=== PATIENT | male | born 1965 | race Caucasian/White ===

== ENCOUNTER 2016-11-21 22:47 | Emergency (ER) | payer MEDICAID ==
[~2016-11-21] VITALS: Ht 180.3 cm; Wt 75.0 kg
[2016-11-21 22:50] VITALS: BP 143/94; PULSE 55; RESP 16; TEMP 98.7; O2SAT 98
[2016-11-21] MEDS ORDERED: PRED20 PO (23:12)
[2016-11-21] MEDS ORDERED: NORC5TAB PO (23:12)
[2016-11-21] MEDS ORDERED: predniSONE 20 MG TAB PO ONE (23:15)
[2016-11-21] MEDS ORDERED: oxyCODONE/ACETAMINOPHEN 5 MG/325 MG TAB PO ONE (23:15)
--- NOTE | 2016-11-21 23:18 | PD ---
HPI . Right great toe pain Chief Complaint: Edema Time Seen by Provider: 23:10 Travel History International Travel<30 days: No Contact w/Intl Traveler<30days: No Traveled to known affect area: No History of Present Illness HPI Patient presents with a 3 to four-day history of right great toe pain. Pain is exacerbated by even light touch swell as ambulation and wearing a shoe. Pain is slightly relieved by Advil. He reports no trauma. He has no previous similar history. Pain is initially rated 10/10. [facility] Social History Tobacco Use: No Allergies-Medications (Allergen,Severity, Reaction): Coded Allergies: No Known Allergies (Unverified , 11/21/16) Reported Meds & Prescriptions Reported Meds & Active Scripts Active [place] (Hydrocodone-Acetaminophen) 5-325 mg Tab 1 Tab PO Q4H PRN Prednisone 20 Mg Tab 60 Mg PO DAILY 4 Days Review of Systems Except as stated in HPI: all other systems reviewed are Neg Musculoskeletal: Positive: Arthralgias Physical Exam Narrative GENERAL: Awake and alert and in no acute distress. SKIN: Warm and dry. Redness and warmth overlying the right first MTP joint. HEAD: Atraumatic. Normocephalic. EYES: Pupils equal and round. NECK: Trachea midline. CARDIOVASCULAR: Regular rate and rhythm. RESPIRATORY: No accessory muscle use. MUSCULOSKELETAL: Markedly tender at the right first MTP joint. NEUROLOGICAL: Awake and alert. No obvious cranial nerve deficits. Motor grossly within normal limits. Normal speech. PSYCHIATRIC: Appropriate mood and affect; insight and judgment normal. Data Data Last Documented VS Vital Signs Date Time Temp Pulse Resp B/P Pulse Ox O2 Delivery O2 Flow Rate FiO2 11/21/16 22:50 98.7 55 16 143/94 98 Orders Prednisone (Deltasone) (11/21/16 23:15) Oxycodone-Acetamin 5-325 Mg (Percocet (11/21/16 23:15) MDM Medical Decision Making Medical Screen Exam Complete: Yes Emergency Medical Condition: Yes Differential Diagnosis Differential diagnosis of joint pain includes but is not limited to arthritis, gout, sprain/strain, fracture, dislocation Narrative Course This patient presents with right great toe pain. His physical exam is classic for gout. Diagnosis Primary Impression: Gout Qualified Code: M10.9 - Acute gout involving toe of right foot, unspecified cause Patient Instructions: General Instructions, Gout (ED) Departure Forms: Tests/Procedures Scripts Hydrocodone-Acetaminophen ([place])5-325 mg Tab1 Tab PO Q4H PRN (PAIN) #12 TAB Ref 0 Prov:Rosmery Samaniego MD 11/21/16 Prednisone 20 Mg Tab60 Mg PO DAILY 4 Days Ref 0 Prov:Rosmery Samaniego MD 11/21/16 Disposition: 01 DISCHARGE HOME Condition: Stable Rosmery Samaniego MD Nov 21, 2016 23:18
[2016-11-21 23:30] VITALS: BP 137/81
== END 2016-11-21 23:42 | disposition home or self-care (01) ==
LOC: NEPD 22:47
DX: M10.9 Gout, unspecified (principal)
CPT/HCPCS: 99284; J7512